=== PATIENT | female | born 1995 | race Caucasian/White ===

== ENCOUNTER 2025-08-13 16:09 | Emergency (ER) | payer BC ==
[~2025-08-13] VITALS: Ht 157.5 cm; Wt 59.0 kg
[2025-08-13 16:32] LABS: PLATELET COUNT (AUTO) 316 K/uL (179-408); RED BLOOD CELL COUNT(AUTO) 3.70 MIL/uL (3.63-4.92); RED CELL DISTRIBUTION WIDTH 12.5 % (12.3-17.7); WHITE BLOOD COUNT (AUTO) 7.8 K/uL (3.8-11.8)
[2025-08-13 16:37] VITALS: BP 112/83
[2025-08-13 16:41] LABS: CREATININE 0.6 mg/dL (0.6-1.3); SODIUM SERUM 142.0 mmol/L (136-145); UREA NITROGEN, BLOOD 11.0 mg/dL (7-18)
[2025-08-13 16:54] LABS: ETHANOL < 3 MG/DL (0-10)
[2025-08-13 16:56] LABS: ASPARTATE AMINOTRANSFERASE 24.0 U/L (15-37); TOTAL PROTEIN, SERUM 7.1 g/dL (6.4-8.2)
[2025-08-13 17:22] LABS: *URINE HCG, QUAL NEGATIVE (NEGATIVE)
[2025-08-13] MEDS ORDERED: KETOROLAC TROMETHAMINE 30 MG INJ ONE (17:24)
[2025-08-13 17:31] LABS: *AMPHETAMINE, URINE NEGATIVE (NEGATIVE); *BARBITURATE, URINE NEGATIVE (NEGATIVE); *BENZODIAZEPINE, URINE NEGATIVE (NEGATIVE); *CANNABINOID, URINE POSITIVE (NEGATIVE); *COCCAINE, URINE NEGATIVE (NEGATIVE); *OPIATE, URINE NEGATIVE (NEGATIVE); *PHENCYCLIDINE SCREEN,URINE NEGATIVE (NEGATIVE); FENTANYL, URINE NEGATIVE (NEGATIVE)
[2025-08-13] MEDS: KETOROLAC TROMETHAMINE 30 MG INJ IVP ONE (17:32)
[2025-08-13] MEDS ORDERED: LEVE500T9 PO (17:36)
[2025-08-13 18:17] VITALS: BP 100/71; O2SAT 98
== END 2025-08-13 18:18 | disposition home or self-care (01) ==
LOC: ER 16:09
DX: G40.909 Epilepsy, unspecified, not intractable, without status epilepticus (principal)
CPT/HCPCS: 80076; 80048; 84703; 85025; 36415; 71045; 70450; 99285; 96365; 96375; 80299; 80320; 80307; J1885; J1953; A4606; A4663; G0480